=== PATIENT | female | born 1960 | race Hispanic/Latino ===

== ENCOUNTER 2017-02-08 11:27 | Emergency (ER) | payer MEDICAID ==
[2017-02-08 11:28] VITALS: BMI 31.9
[2017-02-08 11:38] VITALS: RESP 18; TEMP 98.8
[2017-02-08] MEDS ORDERED: Sodium Chloride 0.9% 1,000 ML IV STA (12:04)
--- NOTE | 2017-02-08 12:07 | ED PDOC ---
Arrival/HPI - General Chief Complaint: Abdominal Pain Time Seen by Provider: 02/08/17 12:04 Historian: Patient - History of Present Illness Narrative History of Present Illness (Text): 02/08/17 12:00 Sherry Hamlin is a 56 year old female, who presents to the emergency department complaining of lower left quadrant abdominal pain and frequency since two days ago. Patient reports she saw her PMD today who scheduled her for an ultrasound in five days but the pain was too severe that she had to come. Patient denies fever, diarrhea, vomiting, nausea, shortness of breath, dysuria, or other complaints. 02/08/17 14:10 Time/Duration: < week (2 days) Symptom Onset: Sudden Symptom Course: Unchanged Associated Symptoms (Text): frequency Past Medical History - Provider Review Nursing Documentation Reviewed: Yes - Infectious Disease Hx of Infectious Diseases: None - Cardiac Hx Hypertension: Yes Hx Pacemaker: No - Neurological Hx Paralysis: No - Hematological/Oncological Hx Blood Transfusions: No - Musculoskeletal/Rheumatological Hx Arthritis: Yes - Psychiatric Hx Depression: Yes Hx Substance Use: No - Anesthesia Hx Anesthesia Reactions: No Hx Malignant Hyperthermia: No - Suicidal Assessment Feels Threatened In Home Enviroment: No Family/Social History - Physician Review Nursing Documentation Reviewed: Yes Family/Social History: Unknown Family HX Smoking Status: Former Smoker Hx Alcohol Use: No Hx Substance Use: No Allergies/Home Meds Allergies/Adverse Reactions: Allergies aspirin Allergy (Verified 02/08/17 11:39) URTICARIA Home Medications: Home Meds Medication Instructions Recorded Confirmed Albuterol Sulfate [Ventolin Hfa] 1 puff IH TID PRN 11/07/14 02/08/17 Montelukast [Singulair] 10 mg PO DAILY 11/07/14 02/08/17 Simvastatin 20 mg PO QPM 11/07/14 02/08/17 buPROPion XL [Wellbutrin] 150 mg PO DAILY 11/07/14 02/08/17 Hydrochlorothiazide [Microzide] 12.5 mg PO DAILY 02/08/17 02/08/17 Review of Systems - Physician Review All systems were reviewed & negative as marked: Yes - Review of Systems Constitutional: absent: Fevers Respiratory: absent: SOB Gastrointestinal: Abdominal Pain (lower left abdominal pain ). absent: Diarrhea , Nausea, Vomiting Genitourinary Female: Frequency. absent: Dysuria Neurological: absent: Headache Physical Exam Vital Signs Reviewed: Yes Vital Signs Temp Pulse Resp BP Pulse Ox 02/08/17 13:30 67 18 142/89 98 02/08/17 11:31 98.8 F 79 18 138/88 97 Temperature: Afebrile Blood Pressure: Normal Pulse: Regular Respiratory Rate: Normal Appearance: Positive for: Well-Appearing, Non-Toxic, Comfortable Pain Distress: None Mental Status: Positive for: Alert and Oriented X 3 - Systems Exam Head: Present: Atraumatic, Normocephalic Pupils: Present: PERRL Extroacular Muscles: Present: EOMI Conjunctiva: Present: Normal Mouth: Present: Moist Mucous Membranes Respiratory/Chest: Present: Clear to Auscultation, Good Air Exchange. No: Respiratory Distress, Accessory Muscle Use Cardiovascular: Present: Regular Rate and Rhythm, Normal S1, S2. No: Murmurs Abdomen: Present: Tenderness (left lower quadrant tenderness), Normal Bowel Sounds. No: Distention, Peritoneal Signs Upper Extremity: Present: Normal Inspection. No: Cyanosis, Edema Lower Extremity: Present: Normal Inspection. No: Edema Neurological: Present: GCS=15, CN II-XII Intact, Speech Normal Skin: Present: Warm, Dry, Normal Color. No: Rashes Psychiatric: Present: Alert, Oriented x 3, Normal Insight, Normal Concentration Medical Decision Making ED Course and Treatment: 02/08/17 12:00 Impression: 56 year old female with lower left quadrant tenderness and frequency. Differential Diagnosis included but are not limited to: diverticulitis vs. UTI Plan: -- Abdomen and pelvis CT -- Labs -- Urine culture and Urinalysis -- Toradol and IV fluids -- Reassess and disposition Progress Notes: Report Date : 02/08/2017 13:51:30 PROCEDURE: CT Abdomen and Pelvis without intravenous contrast Dictator : Grzegorz Zapata MD IMPRESSION: Severe acute diverticulitis along the sigmoid colon without evidence of abscess. Mild right hydroureter. No evidence of urinary tract calculus. 02/08/17 14:09 CBC and CMP grossly normal. UA shows leukocytes and trace blood. CT as above. Patient reports that she feels better and wants to go home. She is afebrile and tolerating po. Patient feels better and wants to go home. She was given detailed return instructions. Will dc with cipro and flagyl that will treat uti and diverticulitis. - Lab Interpretations Lab Results: 02/08/17 12:25 02/08/17 12:25 Lab Results 02/08/17 12:49: Urine Color Yellow, Urine Appearance Clear, Urine pH 6.0, Ur Specific [place] 1.020, Urine Protein Negative, Urine Glucose (UA) Negative, Urine Ketones Negative, Urine Blood Trace-intact H, Urine Nitrate Negative, Urine Bilirubin Negative, Urine Urobilinogen 0.2, Ur Leukocyte Esterase Trace H , Urine RBC 0 - 2, Urine WBC 0 - 2, Ur Epithelial Cells 0 - 2 02/08/17 12:25: WBC 7.0, RBC 4.52, Hgb 13.9, Hct 42.4, MCV 93.8, MCH 30.8, MCHC 32.8, RDW 13.4, Plt Count 267, MPV 8.4, Gran % 62.7, Lymph % (Auto) 22.7, Morgan % (Auto) 12.5 H, Eos % (Auto) 1.7, Baso % (Auto) 0.4, Gran # 4.37, Lymph # 1.6, Morgan # 0.9 H, Eos # 0.1, Baso # 0.03 02/08/17 12:25: Sodium 142, Potassium 4.0, Chloride 102, Carbon Dioxide 29, Anion Gap 15, BUN 14, Creatinine 0.7, Est GFR ( Amer) > 60, Est GFR (Non- Af Amer) > 60, Random Glucose 94, Calcium 9.3, Phosphorus 3.2, Magnesium 2.0, Total Bilirubin 0.8, AST 32, ALT 42, Alkaline Phosphatase 82, Total Protein 7.9 , Albumin 4.6, Globulin 3.3, Albumin/Globulin Ratio 1.4, Lipase 83 I have reviewed the lab results: Yes - RAD Interpretation Radiology Orders: 02/08/17 12:58 ABD & PELVIS W/O PO OR IV CONT [CT] Stat - Medication Orders Current Medication Orders: Discontinued Medications Ciprofloxacin (Cipro) 500 mg PO STAT STA PRN Reason: Protocol Stop: 02/08/17 14:13 Last Admin: 02/08/17 14:22 Dose: 500 mg Sodium Chloride (Sodium Chloride 0.9%) 1,000 mls @ 999 mls/hr IV .Q1H1M STA Stop: 02/08/17 13:04 Last Admin: 02/08/17 12:29 Dose: 999 mls/hr Ketorolac Tromethamine (Toradol) 30 mg IVP STAT STA Stop: 02/08/17 12:05 Last Admin: 02/08/17 12:33 Dose: 30 mg Metronidazole (Flagyl) 500 mg PO STAT STA PRN Reason: Protocol Stop: 02/08/17 14:13 Last Admin: 02/08/17 14:22 Dose: 500 mg - Scribe Statement The provider has reviewed the documentation as recorded by the Wendy Ventura Provider Scribe Attestation: All medical record entries made by the Wendy were at my direction and personally dictated by me. I have reviewed the chart and agree that the record accurately reflects my personal performance of the history, physical exam, medical decision making, and the department course for this patient. I have also personally directed, reviewed, and agree with the discharge instructions and disposition. Disposition/Present on Arrival - Present on Arrival Any Indicators Present on Arrival: No History of DVT/PE: No History of Uncontrolled Diabetes: No Urinary Catheter: No History of Decub. Ulcer: No History Surgical Site Infection Following: None - Disposition Have Diagnosis and Disposition been Completed?: Yes Diagnosis: Diverticulitis Disposition: HOME/ ROUTINE Disposition Time: 14:10 Patient Plan: Discharge Condition: GOOD Discharge Instructions (ExitCare): Diverticulitis (ED) Additional Instructions: Take full course of antibiotics. Return if condition worsens. Return immediately if you develop any worsening pain, fever, vomiting. Prescriptions: Ciprofloxacin [Cipro] 500 mg PO BID #20 tab metroNIDAZOLE [Flagyl] 500 mg PO TID #30 tab Forms: [employer] ([place]i), WORK NOTE
[2017-02-08 12:45] LABS: BASO # 0.03 K/mm3 (0.0-2.0); BASO % 0.4 % (0.0-3.0); EOS # 0.1 (0.0-0.7); EOS % 1.7 % (1.5-5.0); GRAN # 4.37 (1.4-6.5); GRAN % 62.7 % (50.0-68.0); HEMATOCRIT 42.4 % (36.0-48.0); LYMPH # 1.6 (1.2-3.4); LYMPH % 22.7 % (22.0-35.0); MEAN CELL VOLUME 93.8 fl (80.0-105.0); MEAN CORPUSCULAR HEMOGLOBIN 30.8 pg (25.0-35.0); MEAN CORPUSCULAR HGB CONC 32.8 g/dl (31.0-37.0); MEAN PLATELET VOLUME 8.4 fl (7.0-11.0); MONO # 0.9 (0.1-0.6); MONO % 12.5 % (1.0-6.0); RED CELL DISTRIBUTION WIDTH 13.4 % (11.5-14.5)
[2017-02-08 12:52] LABS: ALB/GLOB RATIO 1.4 (1.1-1.8); ALKALINE PHOSPHATASE 82 U/L (38-126); ALT/SGPT 42 U/L (7-56); AST/SGOT 32 U/L (14-36); BILIRUBIN,TOTAL 0.8 mg/dL (0.2-1.3); BLOOD UREA NITROGEN 14 mg/dL (7-21); CALCIUM 9.3 mg/dL (8.4-10.5); CARBON DIOXIDE 29 mmol/L (21-33); CHLORIDE 102 mmol/L (98-107); GFR AFRICAN-AMERICAN > 60; GLUCOSE,RANDOM 94 mg/dL (70-110); LIPASE 83 U/L (23-300); PHOSPHOROUS 3.2 mg/dL (2.5-4.5); SODIUM 142 mmol/L (132-148); TOTAL PROTEIN 7.9 g/dL (5.8-8.3)
[2017-02-08 12:53] LABS: URINE BILIRUBIN NEGATIVE (NEGATIVE); URINE BLOOD TRACE-INTACT (NEGATIVE); URINE GLUCOSE (UA) NEGATIVE (NEGATIVE); URINE KETONE NEGATIVE (NEGATIVE); URINE LEUKOCYTE ESTERASE TRACE Leu/uL (NEGATIVE); URINE PROTEIN NEGATIVE mg/dL (<30 mg/dL); URINE UROBILINOGEN 0.2 E.U./dL (<1 E.U./dL)
[2017-02-08 12:55] LABS: URINE APPEARANCE CLEAR (CLEAR); URINE COLOR YELLOW (YELLOW)
[2017-02-08 13:04] LABS: URINE EPITHELIAL CELLS 0 - 2 /hpf (0-5); URINE RBC 0 - 2 /hpf (0-2); URINE WBC 0 - 2 /hpf (0-6)
[2017-02-08 13:30] VITALS: BP 142/89; PULSE 67; O2SAT 98
--- NOTE | 2017-02-08 13:53 | CT ---
PROCEDURE: CT Abdomen and Pelvis without intravenous contrast HISTORY: hematuria, LLQ pain COMPARISON: None. TECHNIQUE: Technique. Contrast Dose: Radiation dose: Total exam DLP = 723 mGy-cm. This CT exam was performed using one or more of the following dose reduction techniques: Automated exposure control, adjustment of the mA and/or kV according to patient size, and/or use of iterative reconstruction technique. FINDINGS: LOWER THORAX: Unremarkable. LIVER: Unremarkable. No gross lesion or ductal dilatation. GALLBLADDER AND BILE DUCTS: Unremarkable. PANCREAS: Unremarkable. No gross lesion or ductal dilatation. SPLEEN: Unremarkable. ADRENALS: Unremarkable. No mass. KIDNEYS AND URETERS: Mild right hydroureter. No evidence of renal mass or calculus. VASCULATURE: Unremarkable. No aortic aneurysm. BOWEL: Extensive colonic diverticulosis with severe pericolonic fat infiltration along the sigmoid colon consistent with acute diverticulitis. No evidence of abscess.. No obstruction. No gross mural thickening. APPENDIX: Unremarkable. Normal appendix. PERITONEUM: Unremarkable. No free fluid. No free air. LYMPH NODES: Unremarkable. No enlarged lymph nodes. BLADDER: Unremarkable. REPRODUCTIVE: Unremarkable. BONES: No acute fracture. OTHER FINDINGS: None. IMPRESSION: Severe acute diverticulitis along the sigmoid colon without evidence of abscess. Mild right hydroureter. No evidence of urinary tract calculus.
== END 2017-02-08 14:25 | disposition home or self-care (01) ==
LOC: ED 11:27
DX: K57.92 Diverticulitis of intestine, part unspecified, without perforation or abscess without bleeding (principal)
CPT/HCPCS: 74176; 80053; 81001; 83690; 83735; 84100; 85025; 87086; 96374; 99284; J1885; J7040

== ENCOUNTER 2017-02-26 21:02 | Observation (INO) | payer MEDICAID ==
[2017-02-26 21:03] VITALS: BMI 31.9
--- NOTE | 2017-02-26 21:56 | ED PDOC ---
Arrival/HPI - General Chief Complaint: Back Pain Time Seen by Provider: 02/26/17 21:29 Historian: Patient - History of Present Illness Narrative History of Present Illness (Text): 02/26/17 21:51 56 year old female, whose past medical history includes hypertension, hyperlipidemia, asthma, diverticulitis, and breast cancer on remission since 1996, presents to the emergency department complaining of exertional chest pain, occasional sob and right lateral back pain with possible diagnosis of pneumonia. Patient states she went to see her primary medical doctor and started off with bronchitis. Patient returned with worsening symptoms 3 days ago and had an chest X-ray done stating she was diagnosed with pneumonia and is on Levaquin with no relief. Patient than returned for a follow up today and chest X-ray showed ? abnormal results and Dr. Doss recommended CT chest. She decided to come in to the emergency department. Patient denies any fever, chills , nausea, vomiting, diarrhea, urinary symptoms, neck pain, headache, dizziness, or any other complaints. PMD: Dr. Renee Time/Duration: Other (3 days ago) Symptom Onset: Gradual Symptom Course: Unchanged Activities at Onset: Light Context: Home Past Medical History - Provider Review Nursing Documentation Reviewed: Yes - Infectious Disease Hx of Infectious Diseases: None - Cardiac Hx Hypertension: Yes Hx Pacemaker: No - Neurological Hx Paralysis: No - Hematological/Oncological Hx Blood Transfusions: No Other/Comment: breast CA-in remission - Musculoskeletal/Rheumatological Hx Arthritis: Yes - Psychiatric Hx Depression: Yes Hx Substance Use: No - Anesthesia Hx Anesthesia Reactions: No Hx Malignant Hyperthermia: No - Suicidal Assessment Feels Threatened In Home Enviroment: No Family/Social History - Physician Review Nursing Documentation Reviewed: Yes Family/Social History: No Known Family HX Smoking Status: Former Smoker Hx Alcohol Use: No Hx Substance Use: No Allergies/Home Meds Allergies/Adverse Reactions: Allergies aspirin Allergy (Verified 02/26/17 21:16) URTICARIA Home Medications: Home Meds Medication Instructions Recorded Confirmed Albuterol HFA [Ventolin HFA 90 2 puff IH PRN PRN 02/26/17 02/26/17 mcg/actuation (8 g)] Ascorbic Acid [Vitamin C] 500 mg PO DAILY 02/26/17 02/26/17 Cholecalciferol (Vitamin D3) 2,000 unit PO DAILY 02/26/17 02/26/17 [Vitamin D3] Levofloxacin [Levaquin] 750 mg PO DAILY 02/26/17 02/26/17 Montelukast [Singulair] 10 mg PO DAILY 02/26/17 02/26/17 Multivit-Min/Iron/Folic/Lutein 1 each PO DAILY 02/26/17 02/26/17 [Centrum Silver Women Tablet] Promethazine DM [Phenergan DM 5 ml PO Q6H PRN 02/26/17 02/26/17 Syrup] Simvastatin [Zocor] 20 mg PO DAILY 02/26/17 02/26/17 Triamcinolone 0.25% [Triamcinolone 1 appl TP TID 02/26/17 02/26/17 Acetonide] hydroCHLOROthiazide [Microzide] 12.5 mg PO DAILY 02/26/17 02/26/17 Review of Systems - Physician Review All systems were reviewed & negative as marked: Yes - Review of Systems Constitutional: absent: Fevers, Other (Chills) Respiratory: SOB, Cough Cardiovascular: Chest Pain Gastrointestinal: absent: Diarrhea, Nausea, Vomiting Genitourinary Female: absent: Dysuria, Frequency, Hematuria Musculoskeletal: Back Pain (right lateral back pain). absent: Neck Pain Neurological: absent: Headache, Dizziness Physical Exam Vital Signs Reviewed: Yes Vital Signs Temp Pulse Resp BP Pulse Ox 02/27/17 03:03 98.4 F 86 16 132/71 99 02/26/17 21:16 99.6 F 93 H 18 152/91 H 97 Temperature: Afebrile Blood Pressure: Normal Pulse: Regular Respiratory Rate: Normal Appearance: Positive for: Well-Appearing, Non-Toxic, Comfortable Pain Distress: None Mental Status: Positive for: Alert and Oriented X 3 - Systems Exam Head: Present: Atraumatic, Normocephalic Pupils: Present: PERRL Extroacular Muscles: Present: EOMI Conjunctiva: Present: Normal Mouth: Present: Moist Mucous Membranes Neck: Present: Normal Range of Motion Respiratory/Chest: Present: Clear to Auscultation, Good Air Exchange. No: Respiratory Distress, Accessory Muscle Use Cardiovascular: Present: Regular Rate and Rhythm, Normal S1, S2. No: Murmurs Abdomen: Present: Normal Bowel Sounds. No: Tenderness, Distention, Peritoneal Signs Back: Present: Normal Inspection Upper Extremity: Present: Normal Inspection. No: Cyanosis, Edema Lower Extremity: Present: Normal Inspection. No: Edema Neurological: Present: GCS=15, CN II-XII Intact, Speech Normal Skin: Present: Warm, Dry, Normal Color. No: Rashes Psychiatric: Present: Alert, Oriented x 3, Normal Insight, Normal Concentration Medical Decision Making ED Course and Treatment: 02/26/17 21:52 Impression: 56 year old female presents complaining of exertional chest pain and on exertion right lateral back pain with possible diagnosis of pneumonia. Plan: -- CT Angio Chest PE Protocol -- EKG -- Labs -- Chest X-ray -- Reassess and disposition Prior Visits: Notes and results from previous visits were reviewed. On 02/08/17 patient came in complaining of lower LLQ abdominal pain two days ago. Patient was discharged on antibiotics. Progress Notes: EKG shows NSR at 83 BPM with non-specific ST/T changes. Interpreted by me. CXR Impression: As read by me, no acute processes. EXAM: CT Angiography Chest With Intravenous Contrast Dictated and Authenticated by: Morgan Paredes MD 02/27/2017 12:51 AM FINDINGS: Pulmonary arteries: No definite large or central pulmonary embolism. Motion and beam hardening artifact limit evaluation of many smaller branches. Aorta: Thoracic aorta is unremarkable. No thoracic aortic aneurysm. Lungs: Minimal biapical scarring. There is minimal bibasilar atelectasis. No mass. Pleural space: The lungs are free of large dense consolidation, pleural effusion or pneumothorax. Heart: The heart is not enlarged. No significant pericardial effusion. No evidence of RV dysfunction. Mediastinum: Small hiatal hernia. Thyroid: Thyroid is grossly normal in size and position. Bones/joints: No displaced fractures identified in the thorax. There are mild degenerative changes present. There is mild diffuse osteopenia. No dislocation. Soft tissues: Unremarkable. Lymph nodes: Is no axillary adenopathy. No mediastinal or hilar adenopathy. Stomach and bowel: There is a large anterior diaphragmatic hernia which contains a significant portion of the transverse colon as well as a large amount of omental fat. Upper abdomen: Scans through the upper abdomen demonstrate no definite acute abnormalities. IMPRESSION: 1. No definite large or central pulmonary embolism. Motion and beam hardening artifact limit evaluation of many smaller branches. 2. The lungs are free of large dense consolidation, pleural effusion or pneumothorax. 3. There is a large anterior diaphragmatic hernia which contains a significant portion of the transverse colon as well as a large amount of omental fat. 02/27/17 01:[address] Donaldson who is aware and agrees with the plan. Accept patient into service. Patient will go to Telemetry for chest pain. - Lab Interpretations Lab Results: 02/26/17 22:15 02/26/17 22:15 Lab Results 02/26/17 22:15: WBC 6.8, RBC 4.59, Hgb 14.3, Hct 43.4, MCV 94.6, MCH 31.2, MCHC 32.9, RDW 13.6, Plt Count 295, MPV 8.3 02/26/17 22:15: Sodium 140, Potassium 4.0, Chloride 99, Carbon Dioxide 32, Anion Gap 13, BUN 21, Creatinine 0.8, Est GFR ( Amer) > 60, Est GFR (Non- Af Amer) > 60, Random Glucose 155 H, Calcium 9.2, Total Bilirubin 0.4, AST 28, ALT 43, Alkaline Phosphatase 60, Lactate Dehydrogenase 470, Total Creatine Kinase 70, Troponin I < 0.01, Total Protein 7.2, Albumin 4.3, Globulin 3.0, Albumin/Globulin Ratio 1.4 02/26/17 22:15: PT 10.7, INR 0.99, APTT 24.7 I have reviewed the lab results: Yes - RAD Interpretation Narrative RAD Interpretations (Text): 02/27/17 01:02 CT Chest- IMPRESSION: 1. No definite large or central pulmonary embolism. Motion and beam hardening artifact limit evaluation of many smaller branches. 2. The lungs are free of large dense consolidation, pleural effusion or pneumothorax. 3. There is a large anterior diaphragmatic hernia which contains a significant portion of the transverse colon as well as a large amount of omental fat. Radiology Orders: 02/26/17 21:51 CHEST PORTABLE [RAD] Stat 02/26/17 22:06 ANGIO CHEST PE PROTOCOL [CT] Stat Public Message Service Supervisor: Radiologist - EKG Interpretation Interpreted by ED Physician: Yes Type: 12 lead EKG - Medication Orders Current Medication Orders: Albuterol Sulfate (Albuterol 0.083% Inhal Orly (2.5 Mg/3 Ml) Ud) 2.5 mg IH [id number] PRN PRN Reason: Wheezing Ascorbic Acid (Vitamin C 500 Mg Tab) 500 mg PO DAILY WON Atorvastatin Calcium (Lipitor) 10 mg PO DIN WON Cholecalciferol (Vitamin D) 2,000 iu PO DAILY WON Heparin Sodium (Porcine) (Heparin) 5,000 units SC Q12 WON PRN Reason: Protocol Hydrochlorothiazide (Microzide) 12.5 mg PO DAILY WON Montelukast Sodium (Singulair) 10 mg PO HS WON Multivitamins/Minerals (Therapeutic-M Tab) 1 tab PO DAILY WON Pantoprazole Sodium (Protonix Ec Tab) 40 mg PO 0600 WON Promethazine HCl/Dextromethorphan (Phenergan Dm Syrup) 5 ml PO Q6H PRN PRN Reason: Cough Triamcinolone Acetonide (Triamcinolone 0.25% Oint) 0 gm TOP TID WON Discontinued Medications Cyclobenzaprine HCl (Flexeril) 5 mg PO STAT STA Stop: 02/27/17 02:33 Last Admin: 02/27/17 03:22 Dose: 5 mg - Scribe Statement The provider has reviewed the documentation as recorded by the Wendy Saunders Provider Scribe Attestation: All medical record entries made by the Wendy were at my direction and personally dictated by me. I have reviewed the chart and agree that the record accurately reflects my personal performance of the history, physical exam, medical decision making, and the department course for this patient. I have also personally directed, reviewed, and agree with the discharge instructions and disposition. Disposition/Present on Arrival - Present on Arrival Any Indicators Present on Arrival: No History of DVT/PE: No History of Uncontrolled Diabetes: No Urinary Catheter: No History of Decub. Ulcer: No History Surgical Site Infection Following: None - Disposition Have Diagnosis and Disposition been Completed?: Yes Diagnosis: Chest pain Disposition: HOSPITALIZED Disposition Time: 02:05 Patient Plan: Observation Patient Problems: Current Active Problems Problem Status Onset Chest pain Acute Condition: STABLE
[2017-02-26 22:36] LABS: HEMATOCRIT 43.4 % (36.0-48.0); MEAN CELL VOLUME 94.6 fl (80.0-105.0); MEAN CORPUSCULAR HEMOGLOBIN 31.2 pg (25.0-35.0); MEAN CORPUSCULAR HGB CONC 32.9 g/dl (31.0-37.0); MEAN PLATELET VOLUME 8.3 fl (7.0-11.0); RED CELL DISTRIBUTION WIDTH 13.6 % (11.5-14.5); WHITE BLOOD COUNT 6.8 10^3/ul (4.5-11.0)
[2017-02-26 22:44] LABS: ALB/GLOB RATIO 1.4 (1.1-1.8); ALKALINE PHOSPHATASE 60 U/L (38-126); ALT/SGPT 43 U/L (7-56); AST/SGOT 28 U/L (14-36); BILIRUBIN,TOTAL 0.4 mg/dL (0.2-1.3); BLOOD UREA NITROGEN 21 mg/dL (7-21); CALCIUM 9.2 mg/dL (8.4-10.5); CARBON DIOXIDE 32 mmol/L (21-33); CHLORIDE 99 mmol/L (98-107); GFR AFRICAN-AMERICAN > 60; GLUCOSE,RANDOM 155 mg/dL (70-110); SODIUM 140 mmol/L (132-148); TOTAL PROTEIN 7.2 g/dL (5.8-8.3)
[2017-02-26 22:47] LABS: INR 0.99 (0.93-1.08); PARTIAL THROMBOPLASTIN TIME 24.7 Seconds (23.7-30.8)
[2017-02-26 23:01] LABS: TROPONIN I < 0.01 ng/mL
[2017-02-27] MEDS ORDERED: Promethazine DM 6.25 mg-15 mg/5 ml Syrup PO PRN (03:01)
[2017-02-27] MEDS ORDERED: Albuterol 0.083% Inhal Sol (2.5 mg/3 mL) UD IH PRN (03:09)
--- NOTE | 2017-02-27 03:11 | CP.PCM.HP ---
<Umberto Edmond - Last Filed: 02/27/17 03:12> History of Present Illness - History of Present Illness History of Present Illness: H/P For IM - TKS DO, PGY-1 CC: Back pain HPI: 56 F with PMHx pertinent for diaphragmatic hernia, HLD, presents with 3 days duration of throbbing back pain in the lower thoracic, upper lumbar region on her R side radiating to the paraspinal region, of 7/10 severity, which gets worse when laying on her R side or flat on her back. Rubbing the area gently or laying on her L side makes the pain better. Patient states that she was recently diagnosed with PNA at her urgent care center, which was then changed to a diagnosis of bronchitis, for which she was given levoquin. She states that she had a non-productive cough, for which she was given a cough syrup. As such, she was staying in bed to recover. She then started having back pain as mentioned above, and since it started getting worse, she came to the ED today. Incidentally, she also mentions that she recently had diverticulitis, about a month ago, which was treated with cipro and flagyl, for which she no longer has any complaints. Pt denies f/ch/cp/sob/n/v/d/dysuria/frequency/urgency/hematuria/hematochezia/ hematemesis PSHx: Breast Bx PMHx: Hypertension, Hyperlipidemia, Asthma, Diverticulitis, and Breast CA in remission since 1996 All: ASA SocHx: Social drinking, quit smoking 30 years ago; denies illicits Hosp: Recent hospitalization for diverticulitis FamHx: HTN Meds: See JUL ROS: Constitutional: pt denies fever, chills, generalized weakness ENT: pt denies dysphagia, otalgia, hearing deficit, rhinorrhea Eyes: pt denies sudden loss of vision, diplopia, blurred vision MSK: +see hpi; +complains of R sided calf pain Cardio: +according to ER note, some chest pain; pt denies sob, heart murmur Pulm: +cough; pt denies hemoptysis, wheeze GI: pt denies loss of appetite, abdominal pain, constipation, melena, n/v/ d : pt denies burning on urination, urinary frequency, hematuria, urinary urgency Neuro: pt denies paresis, paresthesia, dizziness, valentino, numbness, tingling Derm: pt denies skin changes, lesions, nail changes Endo: pt denies intolerance to heat/cold, diaphoresis, night sweats, polydipsia Psych: pt denies anxiety, depression, mood changes Present on Admission - Present on Admission Any Indicators Present on Admission: No Past Patient History - Infectious Disease Hx of Infectious Diseases: None - Past Social History Smoking Status: Former Smoker - CARDIAC Hx Hypertension: Yes Hx Pacemaker: No - NEUROLOGICAL Hx Paralysis: No - HEMATOLOGICAL/ONCOLOGICAL Hx Blood Transfusions: No Other/Comment: breast CA-in remission - MUSCULOSKELETAL/RHEUMATOLOGICAL Hx Arthritis: Yes - PSYCHIATRIC Hx Depression: Yes Hx Substance Use: No - SURGICAL HISTORY Hx Surgeries: No - ANESTHESIA Hx Anesthesia Reactions: No Hx Malignant Hyperthermia: No Meds Allergies/Adverse Reactions: Allergies Allergy/AdvReac Type Severity Reaction Status Date / Time aspirin Allergy URTICARIA Verified 02/26/17 21:16 Physical Exam - Additional Findings Additional findings: Phys Exam: VS as below Constitutional: a&o x 4, nad Head and Neck: neck supple, no jvd, trachea midline, carotid midline, no cervical/head mass Eyes: tameka, nonicteric sclera, eom intact ENT: auditory acuity grossly intact, throat not congested, no nasal deformity Cardio: rrr, no m/r/g, no carotid bruit, nml s1, s2 Pulm: no accessory muscle use, equal nml breath sounds bilaterally, ctab Abd: s/nt/nd, nbs x 4 q, no palpable masses Derm: no rashes, no ulcers, no lesions Extr: no edema, no cyanosis, no calf tenderness, no lesions, no varicosities Neuro: cn II-XII grossly intact, ue and le 5/5 muscle strength bilaterally , no los ue, le bilaterally and core MSK: +R waist tenderness extending to R back and R paraspinal region in T11 -L1 region; Alleviated by gentle soft-tissue massage Results - Vital Signs Recent Vital Signs: Last Vital Signs Temp 99.6 F 02/26/17 21:16 Pulse 93 H 02/26/17 21:16 Resp 18 02/26/17 21:16 BP 152/91 H 02/26/17 21:16 Pulse Ox 97 02/26/17 21:16 - Labs Result Diagrams: 02/26/17 22:15 02/26/17 22:15 Assessment & Plan - Assessment and Plan (Free Text) Assessment: A/P 56 F with PMHx of HLD and HTN presenting with R sided lower back pain. Alleged hx of recent bronchitis VS pneumonia. Recent Hx of diverticulitis. Per ED note , also having CP Chest pain r/o ACS - Pt denied chest pain on my examination, but per ER physician, had some CP - Tropes/EKG - trend - Consider cardio c/s should labs change acutely - TSH, A1C, Lipid Panel - Pt allergic to ASA - ECHO Back Pain likely 2/2 MSK Pain - Alleviated by gentle soft tissue massage - Flexeril - Applied OMT, patient felt better - Tuan's negative - AM Labs Diaphragmatic Hernia - Asymptomatic - Surgical c/s: Dr. Gilbert Cough - Continue home DM Syrup Hx/O Hypertension - No home medications Hx/O Hyperlipidemia - Continue home rosuvastatin Hx/O Asthma - Continue home albuterol inhaler Hx/O Diverticulitis - No acute intervention Hx/O Breast CA in remission since 1996 - No acute intervention PPX - Heparin/Protonix <Vijay Donaldson - Last Filed: 02/27/17 03:36> Results - Vital Signs Recent Vital Signs: Last Vital Signs Temp 98.4 F 02/27/17 03:03 Pulse 86 02/27/17 03:03 Resp 16 02/27/17 03:03 BP 132/71 02/27/17 03:03 Pulse Ox 99 02/27/17 03:03 - Labs Result Diagrams: 02/26/17 22:15 02/26/17 22:15 Attending/Attestation - Attestation I have personally seen and examined this patient.: Yes I have fully participated in the care of the patient.: Yes I have reviewed all pertinent clinical information: Yes Notes (Text): 02/27/17 03:35 Patient was seen in the ER. Agree with history, physical examination, assessment and plan.
--- NOTE | 2017-02-27 04:06 | CT ---
EXAM: CT Angiography Chest With Intravenous Contrast CLINICAL HISTORY: 56 years old, female; Pain; Chest pain; Type not specified; Additional info: SOB TECHNIQUE: Axial computed tomographic angiography images of the chest with intravenous contrast using pulmonary embolism protocol. All CT scans at this facility use one or more dose reduction techniques, viz.: automated exposure control; ma/kV adjustment per patient size (including targeted exams where dose is matched to indication; i.e. head); or iterative reconstruction technique. MIP reconstructed images were created and reviewed. Coronal and sagittal reformatted images were created and reviewed. CONTRAST: 100 mL of OMNI 350 administered intravenously. COMPARISON: CT - CHEST W/CONTRAST 12/25/2015 9:11:44 AM FINDINGS: Pulmonary arteries: No definite large or central pulmonary embolism. Motion and beam hardening artifact limit evaluation of many smaller branches. Aorta: Thoracic aorta is unremarkable. No thoracic aortic aneurysm. Lungs: Minimal biapical scarring. There is minimal bibasilar atelectasis. No mass. Pleural space: The lungs are free of large dense consolidation, pleural effusion or pneumothorax. Heart: The heart is not enlarged. No significant pericardial effusion. No evidence of RV dysfunction. Mediastinum: Small hiatal hernia. Thyroid: Thyroid is grossly normal in size and position. Bones/joints: No displaced fractures identified in the thorax. There are mild degenerative changes present. There is mild diffuse osteopenia. No dislocation. Soft tissues: Unremarkable. Lymph nodes: Is no axillary adenopathy. No mediastinal or hilar adenopathy. Stomach and bowel: There is a large anterior diaphragmatic hernia which contains a significant portion of the transverse colon as well as a large amount of omental fat. Upper abdomen: Scans through the upper abdomen demonstrate no definite acute abnormalities. IMPRESSION: 1. No definite large or central pulmonary embolism. Motion and beam hardening artifact limit evaluation of many smaller branches. 2. The lungs are free of large dense consolidation, pleural effusion or pneumothorax. 3. There is a large anterior diaphragmatic hernia which contains a significant portion of the transverse colon as well as a large amount of omental fat.
[2017-02-27 04:10] LABS: BASO # 0.04 K/mm3 (0.0-2.0); BASO % 0.7 % (0.0-3.0); EOS # 0.2 (0.0-0.7); EOS % 3.2 % (1.5-5.0); GRAN # 2.94 (1.4-6.5); GRAN % 49.9 % (50.0-68.0); HEMATOCRIT 43.1 % (36.0-48.0); LYMPH # 1.8 (1.2-3.4); LYMPH % 30.6 % (22.0-35.0); MEAN CELL VOLUME 94.3 fl (80.0-105.0); MEAN CORPUSCULAR HEMOGLOBIN 30.6 pg (25.0-35.0); MEAN CORPUSCULAR HGB CONC 32.5 g/dl (31.0-37.0); MEAN PLATELET VOLUME 8.1 fl (7.0-11.0); MONO # 0.9 (0.1-0.6); MONO % 15.6 % (1.0-6.0); RED CELL DISTRIBUTION WIDTH 13.7 % (11.5-14.5); WHITE BLOOD COUNT 5.9 10^3/ul (4.5-11.0)
[2017-02-27 04:18] LABS: CHOLESTEROL 203 mg/dL (130-200)
[2017-02-27 04:36] LABS: TROPONIN I < 0.01 ng/mL
[2017-02-27 04:42] LABS: ALB/GLOB RATIO 1.5 (1.1-1.8); ALKALINE PHOSPHATASE 62 U/L (38-126); ALT/SGPT 37 U/L (7-56); AST/SGOT 25 U/L (14-36); BILIRUBIN,TOTAL 0.3 mg/dL (0.2-1.3); BLOOD UREA NITROGEN 21 mg/dL (7-21); CALCIUM 9.1 mg/dL (8.4-10.5); CARBON DIOXIDE 30 mmol/L (21-33); CHLORIDE 103 mmol/L (98-107); GFR AFRICAN-AMERICAN > 60; GLUCOSE,RANDOM 109 mg/dL (70-110); PHOSPHOROUS 4.1 mg/dL (2.5-4.5); POTASSIUM 4.2 mmol/L (3.6-5.0); SODIUM 142 mmol/L (132-148); TOTAL PROTEIN 6.9 g/dL (5.8-8.3)
--- NOTE | 2017-02-27 05:45 | CP.PCM.CON ---
History of Present Illness - History of Present Illness History of Present Illness: General Surgery- Dr. Gilbert 56 F PMHx pertinent for asymptomatic anterior diaphragmatic hernia first noticed on imaging over a year ago presented to [facility] ED with 3 days duration of throbbing back pain in the lower thoracic, upper lumbar region on her R side worse when laying on her R side or flat on her back. Pt Recently diagnosed with pneumonia at urgent care took the full dose of given levoquin. Pt went back for follow-up appointment and was told to see a dealer card room. Instead patient decided to come to the ER as she believed it was something serious and would receive faster care. Currently states she is feeling better. Denies Chest pain, shortness of breath, fevers, chills, nausea, vomiting, diarrhea, numbness/tingling in extremities. PSH: Breast Bx, Right toe bunion surgery PMH: Hypertension, Hyperlipidemia, Asthma, Diverticulitis, and Breast CA in remission since 1996 All: ASA SocHx: Social drinking, quit smoking 30 years ago; denies illicit drug use Review of Systems - Review of Systems All systems: reviewed and no additional remarkable complaints except - Constitutional Constitutional: As Per HPI Past Patient History - Infectious Disease Hx of Infectious Diseases: None - Past Social History Smoking Status: Former Smoker - CARDIAC Hx Hypertension: Yes Hx Pacemaker: No - PULMONARY Hx Bronchitis: Yes - NEUROLOGICAL Hx Paralysis: No - RENAL Hx Chronic Kidney Disease: No - ENDOCRINE/METABOLIC Hx Endocrine Disorders: No - HEMATOLOGICAL/ONCOLOGICAL Hx Blood Transfusions: No Other/Comment: breast CA-in remission - INTEGUMENTARY Hx Dermatological Problems: No - MUSCULOSKELETAL/RHEUMATOLOGICAL Hx Arthritis: Yes - GASTROINTESTINAL Hx Gastrointestinal Disorders: No - GENITOURINARY/GYNECOLOGICAL Hx Genitourinary Disorders: No - PSYCHIATRIC Hx Depression: Yes Hx Substance Use: No - SURGICAL HISTORY Hx Surgeries: No - ANESTHESIA Hx Anesthesia Reactions: No Hx Malignant Hyperthermia: No Meds Allergies/Adverse Reactions: Allergies Allergy/AdvReac Type Severity Reaction Status Date / Time aspirin Allergy URTICARIA Verified 02/26/17 21:16 - Medications Medications: Current Medications Albuterol Sulfate (Albuterol 0.083% Inhal Orly (2.5 Mg/3 Ml) Ud) 2.5 mg IH [id number] PRN PRN Reason: Wheezing Ascorbic Acid (Vitamin C 500 Mg Tab) 500 mg PO DAILY WON Atorvastatin Calcium (Lipitor) 10 mg PO DIN [facility] Cholecalciferol (Vitamin D) 2,000 iu PO DAILY [facility] Heparin Sodium (Porcine) (Heparin) 5,000 units SC Q12 WON PRN Reason: Protocol Hydrochlorothiazide (Microzide) 12.5 mg PO DAILY WON Montelukast Sodium (Singulair) 10 mg PO HS [facility] Multivitamins/Minerals (Therapeutic-M Tab) 1 tab PO DAILY [facility] Pantoprazole Sodium (Protonix Ec Tab) 40 mg PO 0600 [facility] Promethazine HCl/Dextromethorphan (Phenergan Dm Syrup) 5 ml PO Q6H PRN PRN Reason: Cough Triamcinolone Acetonide (Triamcinolone 0.25% Oint) 0 gm TOP TID WON Physical Exam - Constitutional Appears: Non-toxic, No Acute Distress - Head Exam Head Exam: ATRAUMATIC - Eye Exam Eye Exam: EOMI. absent: Scleral icterus - ENT Exam ENT Exam: Mucous Membranes Moist - Respiratory Exam Respiratory Exam: NORMAL BREATHING PATTERN. absent: Accessory Muscle Use, Respiratory Distress - Cardiovascular Exam Cardiovascular Exam: +S1, +S2. absent: Bradycardia, Tachycardia - GI/Abdominal Exam GI & Abdominal Exam: Soft. absent: Distended, Firm, Guarding, Hernia, Rigid, Tenderness - Extremities Exam Extremities exam: Negative for: calf tenderness - Back Exam Back exam: absent: CVA tenderness (L), CVA tenderness (R) - Neurological Exam Neurological exam: Alert, Oriented x3 - Psychiatric Exam Psychiatric exam: Normal Affect - Skin Skin Exam: Normal Color, Warm Results - Vital Signs Recent Vital Signs: Last Vital Signs Temp 98.7 F 02/27/17 03:38 Pulse 78 02/27/17 03:38 Resp 19 02/27/17 03:38 BP 126/78 02/27/17 03:38 Pulse Ox 99 02/27/17 03:03 - Labs Result Diagrams: 02/27/17 04:00 02/27/17 04:00 Labs: Laboratory Results - last 24 hr 02/27/17 02/27/17 02/27/17 04:00 04:00 04:00 WBC 5.9 RBC 4.57 Hgb 14.0 Hct 43.1 MCV 94.3 MCH 30.6 MCHC 32.5 RDW 13.7 Plt Count 275 MPV 8.1 Gran % 49.9 L Lymph % (Auto) 30.6 [place] % (Auto) 15.6 H Eos % (Auto) 3.2 Baso % (Auto) 0.7 Gran # 2.94 Lymph # 1.8 Spencer # 0.9 H Eos # 0.2 Baso # 0.04 Sodium 142 Potassium 4.2 Chloride 103 Carbon Dioxide 30 Anion Gap 13 BUN 21 Creatinine 0.8 Est GFR ( Amer) > 60 Est GFR (Non-Af Amer) > 60 Random Glucose 109 Calcium 9.1 Phosphorus 4.1 Magnesium 2.0 Total Bilirubin 0.3 AST 25 ALT 37 Alkaline Phosphatase 62 Troponin I < 0.01 Total Protein 6.9 Albumin 4.1 Globulin 2.8 Albumin/Globulin Ratio 1.5 Triglycerides 283 H Cholesterol 203 H LDL Cholesterol Direct 126 HDL Cholesterol 42 Assessment & Plan - Assessment and Plan (Free Text) Assessment: 56F persistent asymptomatic diaphragmatic hernia Plan: - persistent anterior diaphragmatic hernia; CT unchanged from one year ago - Stool passing through colon within defect - No acute surgical intervention at this time - recommend follow up as an outpatient with CT surgery, especially is pt becomes symptomatic will d/w surgical attending [place] PGY1
[2017-02-27] MEDS ORDERED: Pantoprazole 40 mg EC Tab PO SCH (06:00)
[2017-02-27 06:18] VITALS: O2SAT 95
[2017-02-27] MEDS ORDERED: Pantoprazole 40 mg EC Tab PO ONE (06:48)
[2017-02-27] MEDS ORDERED: Multivitamin With Minerals Tab PO SCH (10:00)
[2017-02-27] MEDS ORDERED: Triamcinolone 0.025% Oint(15 gm) TOP SCH (10:00)
[2017-02-27] MEDS ORDERED: levoFLOXacin 500 mg in D5W 500 MG/100 ML BAG IVPB SCH (10:00)
--- NOTE | 2017-02-27 10:17 | RAD ---
HISTORY: Cough, pain. Technique: Single view portable semi erect @ 21:58 COMPARISON: February 26, 2017. CT thorax FINDINGS: LUNGS: No active pulmonary disease. PLEURA: No significant pleural effusion identified, no pneumothorax apparent. CARDIOVASCULAR: Normal. OSSEOUS STRUCTURES: No significant abnormalities. VISUALIZED UPPER ABDOMEN: Normal. OTHER FINDINGS: None. IMPRESSION: No active disease.
[2017-02-27 11:58] VITALS: BP 136/82; PULSE 67; RESP 20; TEMP 98.4
[2017-02-27 12:21] LABS: TROPONIN I < 0.01 ng/mL
--- NOTE | 2017-02-27 13:09 | CP.PCM.DIS ---
<Segun Jensen - Last Filed: 02/27/17 13:03> Provider - Provider Date of Admission: 02/27/17 02:03 Attending physician: Nancy Cloud MD Consults: Surgery - Dr. Gilbert Time Spent in preparation of Discharge (in minutes): 45 Diagnosis - Discharge Diagnosis (1) Chest pain Status: Resolved Hospital Course - Lab Results Lab Results: Most Recent Lab Values WBC 5.9 10^3/ul (4.5-11.0) 02/27/17 04:00 RBC 4.57 10^6/uL (3.5-6.1) 02/27/17 04:00 Hgb 14.0 g/dL (12.0-16.0) 02/27/17 04:00 Hct 43.1 % (36.0-48.0) 02/27/17 04:00 MCV 94.3 fl (80.0-105.0) 02/27/17 04:00 MCH 30.6 pg (25.0-35.0) 02/27/17 04:00 MCHC 32.5 g/dl (31.0-37.0) 02/27/17 04:00 RDW 13.7 % (11.5-14.5) 02/27/17 04:00 Plt Count 275 10^3/uL (120.0-450.0) 02/27/17 04:00 MPV 8.1 fl (7.0-11.0) 02/27/17 04:00 Gran % 49.9 % (50.0-68.0) L 02/27/17 04:00 Lymph % (Auto) 30.6 % (22.0-35.0) 02/27/17 04:00 [place] % (Auto) 15.6 % (1.0-6.0) H 02/27/17 04:00 Eos % (Auto) 3.2 % (1.5-5.0) 02/27/17 04:00 Baso % (Auto) 0.7 % (0.0-3.0) 02/27/17 04:00 Gran # 2.94 (1.4-6.5) 02/27/17 04:00 Lymph # 1.8 (1.2-3.4) 02/27/17 04:00 [place] # 0.9 (0.1-0.6) H 02/27/17 04:00 Eos # 0.2 (0.0-0.7) 02/27/17 04:00 Baso # 0.04 K/mm3 (0.0-2.0) 02/27/17 04:00 PT 10.7 Seconds (9.9-11.8) 02/26/17 22:15 INR 0.99 (0.93-1.08) 02/26/17 22:15 APTT 24.7 Seconds (23.7-30.8) 02/26/17 22:15 Sodium 142 mmol/L (132-148) 02/27/17 04:00 Potassium 4.2 mmol/L (3.6-5.0) 02/27/17 04:00 Chloride 103 mmol/L (98-107) 02/27/17 04:00 Carbon Dioxide 30 mmol/L (21-33) 02/27/17 04:00 Anion Gap 13 (10-20) 02/27/17 04:00 BUN 21 mg/dL (7-21) 02/27/17 04:00 Creatinine 0.8 mg/dL (0.7-1.2) 02/27/17 04:00 Est GFR ( Amer) > 60 02/27/17 04:00 Est GFR (Non-Af Amer) > 60 02/27/17 04:00 Random Glucose 109 mg/dL (70-110) 02/27/17 04:00 Calcium 9.1 mg/dL (8.4-10.5) 02/27/17 04:00 Phosphorus 4.1 mg/dL (2.5-4.5) 02/27/17 04:00 Magnesium 2.0 mg/dL (1.7-2.2) 02/27/17 04:00 Total Bilirubin 0.3 mg/dL (0.2-1.3) 02/27/17 04:00 AST 25 U/L (14-36) 02/27/17 04:00 ALT 37 U/L (7-56) 02/27/17 04:00 Alkaline Phosphatase 62 U/L (38-126) 02/27/17 04:00 Lactate Dehydrogenase 394 U/L (333-699) 02/27/17 11:20 Total Creatine Kinase 62 U/L (35-230) 02/27/17 11:20 Troponin I < 0.01 ng/mL 02/27/17 11:20 Total Protein 6.9 g/dL (5.8-8.3) 02/27/17 04:00 Albumin 4.1 g/dL (3.0-4.8) 02/27/17 04:00 Globulin 2.8 gm/dL 02/27/17 04:00 Albumin/Globulin Ratio 1.5 (1.1-1.8) 02/27/17 04:00 Triglycerides 283 mg/dL (35-160) H 02/27/17 04:00 Cholesterol 203 mg/dL (130-200) H 02/27/17 04:00 LDL Cholesterol Direct 126 mg/dL (0-129) 02/27/17 04:00 HDL Cholesterol 42 mg/dL (29-60) 02/27/17 04:00 TSH 3rd Generation 3.11 mIU/mL (0.46-4.68) 02/27/17 11:20 - Hospital Course Hospital Course: 56 F with PMH of diaphragmatic hernia, HLD, presented with 3 days duration of throbbing back pain in the lower thoracic, upper lumbar region on her R side radiating to the paraspinal region, of 7/10 severity, which gets worse when laying on her R side or flat on her back. Pt states she never had any chest pain. Pt was admitted and had ACS ruled out with 3 negative troponins. Pt also underwent CT chest which showed large anterior diaphragmatic hernia which contains significant portion of transverse colon and large amount of omental fat. Pt was evaluated by surgery who stated there was no acute intervention necessary patient should follow up with CT surgery as outpatient. Pt underwent Echocardiogram and Lower extremity US. Pt will follow up with PMD within [address] surgery within 1 month. Pt is also advised to finish Levaquin prescription at home for resolving pneumonia. Flexiril also prescribed for back pain relief. Discharge Exam - Head Exam Head Exam: ATRAUMATIC Discharge Plan - Discharge Medications Prescriptions: Cyclobenzaprine [Cyclobenzaprine HCl] 5 mg PO TID #9 tab - Follow Up Plan Condition: STABLE Disposition: HOME/ ROUTINE Instructions: Chest Pain (DC), Chest Pain (GEN) Additional Instructions: Follow up with PMD in 1 week Follow up with CT surgery within 1 month Finish Levaquin at home <Nancy Cloud - Last Filed: 02/28/17 10:41> Provider - Provider Date of Admission: 02/27/17 02:03 Attending physician: Nancy Cloud MD Hospital Course - Lab Results Lab Results: Most Recent Lab Values WBC 5.9 10^3/ul (4.5-11.0) 02/27/17 04:00 RBC 4.57 10^6/uL (3.5-6.1) 02/27/17 04:00 Hgb 14.0 g/dL (12.0-16.0) 02/27/17 04:00 Hct 43.1 % (36.0-48.0) 02/27/17 04:00 MCV 94.3 fl (80.0-105.0) 02/27/17 04:00 MCH 30.6 pg (25.0-35.0) 02/27/17 04:00 MCHC 32.5 g/dl (31.0-37.0) 02/27/17 04:00 RDW 13.7 % (11.5-14.5) 02/27/17 04:00 Plt Count 275 10^3/uL (120.0-450.0) 02/27/17 04:00 MPV 8.1 fl (7.0-11.0) 02/27/17 04:00 Gran % 49.9 % (50.0-68.0) L 02/27/17 04:00 Lymph % (Auto) 30.6 % (22.0-35.0) 02/27/17 04:00 [place] % (Auto) 15.6 % (1.0-6.0) H 02/27/17 04:00 Eos % (Auto) 3.2 % (1.5-5.0) 02/27/17 04:00 Baso % (Auto) 0.7 % (0.0-3.0) 02/27/17 04:00 Gran # 2.94 (1.4-6.5) 02/27/17 04:00 Lymph # 1.8 (1.2-3.4) 02/27/17 04:00 [place] # 0.9 (0.1-0.6) H 02/27/17 04:00 Eos # 0.2 (0.0-0.7) 02/27/17 04:00 Baso # 0.04 K/mm3 (0.0-2.0) 02/27/17 04:00 PT 10.7 Seconds (9.9-11.8) 02/26/17 22:15 INR 0.99 (0.93-1.08) 02/26/17 22:15 APTT 24.7 Seconds (23.7-30.8) 02/26/17 22:15 Sodium 142 mmol/L (132-148) 02/27/17 04:00 Potassium 4.2 mmol/L (3.6-5.0) 02/27/17 04:00 Chloride 103 mmol/L (98-107) 02/27/17 04:00 Carbon Dioxide 30 mmol/L (21-33) 02/27/17 04:00 Anion Gap 13 (10-20) 02/27/17 04:00 BUN 21 mg/dL (7-21) 02/27/17 04:00 Creatinine 0.8 mg/dL (0.7-1.2) 02/27/17 04:00 Est GFR ( Amer) > 60 02/27/17 04:00 Est GFR (Non-Af Amer) > 60 02/27/17 04:00 Random Glucose 109 mg/dL (70-110) 02/27/17 04:00 Calcium 9.1 mg/dL (8.4-10.5) 02/27/17 04:00 Phosphorus 4.1 mg/dL (2.5-4.5) 02/27/17 04:00 Magnesium 2.0 mg/dL (1.7-2.2) 02/27/17 04:00 Total Bilirubin 0.3 mg/dL (0.2-1.3) 02/27/17 04:00 AST 25 U/L (14-36) 02/27/17 04:00 ALT 37 U/L (7-56) 02/27/17 04:00 Alkaline Phosphatase 62 U/L (38-126) 02/27/17 04:00 Lactate Dehydrogenase 394 U/L (333-699) 02/27/17 11:20 Total Creatine Kinase 62 U/L (35-230) 02/27/17 11:20 Troponin I < 0.01 ng/mL 02/27/17 11:20 Total Protein 6.9 g/dL (5.8-8.3) 02/27/17 04:00 Albumin 4.1 g/dL (3.0-4.8) 02/27/17 04:00 Globulin 2.8 gm/dL 02/27/17 04:00 Albumin/Globulin Ratio 1.5 (1.1-1.8) 02/27/17 04:00 Triglycerides 283 mg/dL (35-160) H 02/27/17 04:00 Cholesterol 203 mg/dL (130-200) H 02/27/17 04:00 LDL Cholesterol Direct 126 mg/dL (0-129) 02/27/17 04:00 HDL Cholesterol 42 mg/dL (29-60) 02/27/17 04:00 TSH 3rd Generation 3.11 mIU/mL (0.46-4.68) 02/27/17 11:20 Attending/Attestation - Attestation I have personally seen and examined this patient.: Yes I have fully participated in the care of the patient.: Yes I have reviewed all pertinent clinical information, including history, physical exam and plan: Yes Notes (Text): 02/28/17 10:36 attending note; Patient seen and examined with resident. Patient is a 56-year-old female admitted with right-sided back pain mostly in the paraspinal region. Patient was admitted and monitored closely. patient was recently treated with anti-biotics for pneumonia/bronchitis. CT chest showed no pulmonary embolus. No significant consolidation. paraspinal spasm resolved after Flexeril. No chest pain; cardiac enzymes negative. Echo normal. diaphragmatic hernia; currently denies any nausea, vomiting. No abdominal pain. No reflux symptoms. Surgery evaluation appreciated. Suggested to follow-up with outpatient cardiothoracic surgery. patient will be discharged home today. Follow-up with PMD Dr. Renee. diagnosis; Back pain Musculoskeletal disorder Diaphragmatic hernia
--- NOTE | 2017-02-27 15:22 | US ---
HISTORY: Leg pain and swelling. Evaluate for DVT PHYSICIAN(S): Fritz Agrawal MD. TECHNIQUE: Duplex sonography and color-flow Doppler with graded compression were used to evaluate the deep venous systems of both lower extremities. FINDINGS: The visualized deep venous systems of both lower extremities are sonographically normal and compressible. Normal wave forms and augmentation are seen. There is no sonographic evidence for deep venous thrombosis in the visualized segments of both lower extremities. There is a large 5.5 x 6.1 cm fluid collection left popliteal fossa, consistent with a [place] cyst. IMPRESSION: No sonographic evidence for deep venous thrombosis in the visualized segments of both lower extremities.
--- NOTE | 2017-02-27 22:03 | CARD ---
APPROVED REPORT EKG Measurement Heart [id number] <Conclusion> Normal sinus rhythm Low voltage QRS Borderline ECG
--- NOTE | 2017-02-27 23:04 | CARD ---
APPROVED REPORT EKG Measurement Heart [id number] <Conclusion> Normal sinus rhythm Possible Left atrial enlargement Low voltage QRS Cannot rule out Anterior infarct, age undetermined Abnormal ECG
--- NOTE | 2017-02-28 05:28 | CARD ---
APPROVED REPORT EXAM: Two-dimensional and M-mode echocardiogram with Doppler and color Doppler. INDICATION Chest Pain 2D DIMENSIONS IVSd1.0 (0.7-1.1cm)LVDd4.2 (3.9-5.9cm) PWd1.0 (0.7-1.1cm)LVDs3.0 (2.5-4.0cm) FS (%) 28.3 %LVEF (%)55.1 (>50%) M-Mode DIMENSIONS Aortic Root2.90 (2.2-3.7cm)Aortic Cusp Exc.1.70 (1.5-2.0cm) Aortic Valve AoV Peak Mdexwoyb082.0cm/Divine Peak GR.8mmHg Mitral Valve MV E Xkyjvivo09.4cm/sMV A Rowageut697.0cm/sE/A ratio0.8 TDI Lateral E' Peak V7.99cm/sMedial E' Peak V8.97cm/sE/Lateral E'10.6 E/Medial E'9.4 Pulmonary Valve PV Peak Vzruntuo82.7cm/sPV Peak Grad.2mmHg Tricuspid Valve TR Peak Uqwevvxp821bn/sRAP [id number] Peak Gr.17mmHg [id number] LEFT VENTRICLE The left ventricle is normal size. The left ventricular function is normal. The left ventricular ejection fraction is within the normal range. There is normal LV segmental wall motion. RIGHT VENTRICLE The right ventricle is normal size. The right ventricular systolic function is normal. ATRIA The left atrium size is normal. The right atrium size is normal. The interatrial septum is intact with no evidence for an atrial septal defect. AORTIC VALVE The aortic valve is normal in structure. No aortic regurgitation is present. MITRAL VALVE The mitral valve is normal in structure. There is no mitral valve regurgitation noted. TRICUSPID VALVE The tricuspid valve is normal in structure. There is no tricuspid valve regurgitation noted. PULMONIC VALVE The pulmonary valve is normal in structure. GREAT VESSELS The aortic root is normal in size. The IVC is normal in size and collapses >50% with inspiration. PERICARDIAL EFFUSION There is no pleural effusion. There is no pericardial effusion. <Conclusion> Normal study.
--- NOTE | 2017-03-01 14:05 | CON ---
DATE: 02/27/2017 REQUESTING PHYSICIAN: Nancy Cloud MD REASON FOR CONSULTATION: Chest pain. HISTORY OF PRESENT ILLNESS: This is a 56-year-old woman with history of hypertension and hyperlipidemia who presents to the emergency room with complaints of chest discomfort. She states that her pain occurred over the past several days and described this as a retrosternal pressure radiating to her back. Initial electrocardiogram and blood work has been unremarkable. CT of the chest reportedly showed evidence of hiatal hernia, which is unchanged. She denies any prior cardiac history. She states that she is fairly active. Her recent symptoms began when walking. She had no other associated symptoms. Her cardiac risk factors include hypertension, hyperlipidemia, remote tobacco abuse and the family history of premature heart disease. PAST MEDICAL HISTORY: Her past history is notable for breast cancer which is in remission. She has history of diverticulitis with a recent flare up a month ago. She also has a history of asthma. ALLERGIES: SHE REPORTEDLY HAD REACTION TO ASPIRIN IN THE PAST. CURRENT MEDICATIONS: Include albuterol inhaler, Flexeril, subcutaneous heparin, Levaquin, Lipitor, hydrochlorothiazide, Protonix, and Singulair. FAMILY HISTORY: Father reportedly at the age of 42 from myocardial infarction. Mother at the age of 64 from cardiac issues following abdominal surgery. SOCIAL HISTORY: She is a smoker, but quit over 30 years ago. She drinks occasionally. She is and lives with her . REVIEW OF SYSTEMS: A 10-point review of systems notable for the problems listed above. PHYSICAL EXAMINATION GENERAL: She is a middle-aged woman, who appears somewhat anxious. VITAL SIGNS: Her blood pressure is 126/78 with a pulse of 76 and sinus respirations are 14. She is afebrile. HEENT: Normocephalic and atraumatic. NECK: Supple. No JVD noted. CHEST: Few scattered rhonchi heard. HEART: PMI in normal position. No pathological gallops noted. GASTROINTESTINAL: The abdomen is soft and nontender. Normoactive bowel sounds. EXTREMITIES: No clubbing, cyanosis or edema. SKIN: Warm and dry. PSYCHIATRIC: Normal mood and affect. NEUROLOGIC: Alert and oriented x3. No gross motor or sensory deficits appreciable. DIAGNOSTIC DATA: White count of 5.9 and hemoglobin and hematocrit of 14 and 43.1 with platelet count of 275,000. PT and PTT are normal. Potassium of 4.2. BUN and creatinine are 21 and 0.8. Two sets of cardiac enzymes are negative. Cholesterol is 203 with triglycerides of 283, HDL is 42 and LDL is 126. Electrocardiogram reveals sinus rhythm with nonspecific ST-T wave abnormalities. Chest x-ray reveals normal cardiac silhouette with clear lung carbajal. IMPRESSION: Chest pain with no clear evidence of acute cardiac injury. She does have some component suggestive of ischemic heart disease, does have significant cardiac risk factors given her history of hypertension, hyperlipidemia, remote tobacco abuse, and family history of premature heart disease. Rest of problems as noted. RECOMMENDATIONS: An echocardiogram is pending this morning. If her follow up enzymes are negative and her echocardiogram is relatively unremarkable, discharge home with outpatient follow up would be advised and outpatient stress test is recommended. Continue risk factor control is advised. Thank you for this consultation. Bhavin Murillo MD
== END 2017-02-27 14:25 | disposition home or self-care (01) ==
LOC: ED 21:02 → ERH 02-27 02:03 → 2RNO 02-27 03:39
PROVIDERS: ADMIT Internal Medicine; ATTEND Internal Medicine
DX: J18.9 Pneumonia, unspecified organism (principal); E78.5 Hyperlipidemia, unspecified; I10 Essential (primary) hypertension; J40 Bronchitis, not specified as acute or chronic; J45.909 Unspecified asthma, uncomplicated; K44.9 Diaphragmatic hernia without obstruction or gangrene; Z79.899 Other long term (current) drug therapy; Z85.3 Personal history of malignant neoplasm of breast; Z87.891 Personal history of nicotine dependence; Z88.6 Allergy status to analgesic agent; M19.90 Unspecified osteoarthritis, unspecified site; F32.89 Other specified depressive episodes; R10.32 Left lower quadrant pain; M54.6 Pain in thoracic spine; M54.5 Low back pain; K57.92 Diverticulitis of intestine, part unspecified, without perforation or abscess without bleeding
CPT/HCPCS: 36415; 71010; 71275; 80053; 80061; 82550; 83615; 83735; 84100; 84443; 84484; 85025; 85027; 85610; 85730; 93005; 93306; 93970; 99285; G0378; J1644